=== PATIENT | female | born 1955 | race Caucasian/White ===

== ENCOUNTER → 2017-08-15 | Outpatient (CLI) | payer BC, OTHER ==
[~2017-08-15] MED LIST: ABILIF5PT PO; ADAL40PE4 SQ; BUPR-472 PO; BUPR-474 PO; CALC-18 PO; ESC10 PO; ESCI20TA38 PO; GABA-503 PO; GABA-547 PO; LOPE-101 PO; LOR5/325 PO; MULT-885 PO; PANT40TA65 PO; PRED20TA6 PO; SIMV-49 PO; WARF5TAB23 PO
--- NOTE | 2017-08-15 14:19 | RADIOLOGY IMAGING REPORT ---
FACILITY: [facility] PATIENT NAME: Belen Small : 1955 MR: [id number] V: [id number] EXAM DATE: ORDERING PHYSICIAN: ALEJANDRO DIAZ TECHNOLOGIST: Location: [facility] - [place] Patient: Belen Small : 1955 Visit/Account:[id number] Date of Sevice: 08/15/2017 Transvaginal pelvic ultrasound INDICATION: Post menopausal bleeding. Right. One week ago. COMPARISON: There is a report from a CT examination June 2013 FINDINGS: Uterus measures 9.5 x 4.7 x 6.9 cm. Within the anterior aspect lower uterine segment, there is a mixed echogenic, mostly hypoechoic circ ular lesion with some posterior shadowing which measures 2.4 x 1.5 x 2.0 cm indicative of intramural fibroid. Noted just caudal to this there is a 1.2 x 1.1 x 1 point centimeter lesion with similar anmol acteristics indicative of a second intramural fibroid. Nabothian cysts are noted within the cervix. The endometrium is thickened measuring 1.3 cm. Color overlay demonstrates no hypervascularity. No dis crete lesion. There is no free fluid in the cul-de-sac. Urinary bladder is empty. Pelvic vessels appear unremarkable on this examination. The ovaries are not visualized on this examination. IMPRESSION: 1. The endometrium is thickened for a postmenopausal patient measuring 1.3 cm. No discrete lesion is identified. No hypervascularity. This could be on benign or malignant etiology. [employer] LENS TECHNICIAN consultation i s recommended 2. Findings indicative of 2 intramural fibroids anterior lower uterine segment. Report Dictated By: Derrick Brown MD at 08/15/2017 2:11 PM Report E-Signed By: Derrick Brown MD at 08/15/2017 2:14 PM WSN:[id number]
== END ==
LOC: US 04:50
PROVIDERS: ATTEND Nurse Practitioner Family
DX: D25.1 Intramural leiomyoma of uterus (principal)
CPT/HCPCS: 76830

== ENCOUNTER → 2017-08-22 | Outpatient (CLI) | payer BC, OTHER | LOC: LAB 13:39 | PROVIDERS: ATTEND Obstetrics & Gynecology | DX: Z02.9 Encounter for administrative examinations, unspecified (principal) | CPT/HCPCS: 88305 ==

== ENCOUNTER → 2017-10-16 | Outpatient (CLI) | payer BC, OTHER ==
[~2017-10-16] MED LIST changes: +FOLI-68 PO; +GABA-549 PO; +LOPE2CAP15 PO; +ROSU5TAB8 PO; +VALA500T63 PO
--- NOTE | 2017-10-16 11:02 | EKG ---
FACILITY: [facility] PATIENT NAME: HUBER MAE : [id number] MR: [id number] V: [id number] EXAM DATE: ORDERING PHYSICIAN: WILLI LARKIN TECHNOLOGIST: MANNY Test Reason : PRE OP Blood Pressure : / mmHG Vent. Rate : 059 BPM Atrial Rate : 059 BPM P-R Int : 170 ms QRS Dur : 148 ms QT Int : 472 ms P-R-T Axes : 048 -64 069 degrees QTc Int : 467 ms Sinus bradycardia Left axis deviation Left bundle branch block Abnormal ECG When compared with ECG of 11-MAR-2017 17:11, No significant change was found Confirmed by SENA DORAN ([id number]) on 10/16/2017 12:49:14 PM Referred By: CHAYA Confirmed By:SENA DORAN
== END ==
LOC: RESP 10:40
PROVIDERS: ATTEND Obstetrics & Gynecology
DX: Z01.810 Encounter for preprocedural cardiovascular examination (principal); R00.1 Bradycardia, unspecified; Q21.0 Ventricular septal defect; R94.31 Abnormal electrocardiogram [ECG] [EKG]; I44.7 Left bundle-branch block, unspecified
CPT/HCPCS: 93005

== ENCOUNTER 2017-10-23 03:14 | Day surgery (SDC) | payer BC, OTHER ==
[2017-10-23] VITALS (9 sets, daily range): BP systolic 103–137; BP diastolic 63–84
[~2017-10-23] VITALS: Ht 170.2 cm; Wt 106.6 kg
[2017-10-23 06:14] LABS: PLATELET COUNT, AUTOMATED 192 K/uL (150-450)
[2017-10-23] MEDS ORDERED: LIDOCAINE/SOD BICARB 8.4% SYR ID ONE (06:30)
[2017-10-23] MEDS ORDERED: NORMOSOL R SOLN(*) 1000 ML BAG 1,000 ML IV PRN (06:30)
[2017-10-23] MEDS ORDERED: MIDAZOLAM 2 MG/2 ML VIAL IVP PRN (06:30)
[2017-10-23] MEDS ORDERED: fentaNYL CITR 100 MCG/2 ML AMP ONE (07:09)
[2017-10-23] MEDS ORDERED: ONDANSETRON 4 MG/2 ML VIAL ONE (07:09)
[2017-10-23] MEDS ORDERED: PROPOFOL EMUL(*) 10MG/ML 20 ML 20 ML ONE (07:09)
[2017-10-23] MEDS ORDERED: DEXAMETHASONE SOD PHOS 10MG/ML ONE (07:09)
[2017-10-23] MEDS ORDERED: KETAMINE HCL 500 MG/10 ML VIAL ONE (07:17)
--- NOTE | 2017-10-23 07:34 | History & Physical ---
History of Present Illness Chief Complaint Postmenopausal bleeding History of Present Illness 62-year-old presents with postmenopausal bleeding. She went through menopause 9 years ago. She was never on hormone replacement therapy until spring 2016. At that time, she did [place] with Cristine Gomez. She stopped in 12/2016 because of an episode of heavy bleeding. That episode lasted at least 2 weeks and was extremely heavy. At the time, she did not get evaluated and was told to stop her progesterone. This is what prompted her to stop the HRT. She did not have any other bleeding until 08/11/17. On that day she started having moderate flow bright red bleeding. It lasted for approximately 1 week. She has not had pain with this. She reports starting [employer] and 03/2017 and has lost 25 pounds on this program. History Obstetrical History: Hx 2 SVDs Past Medical History: PMH: Hyperlipidemia, Crohn's disease, GERD, Hx of anxiety/depression PSH: Tonsillectomy, cholecystectomy, knee arthroscopy Allergies: Coded Allergies: Penicillins (Verified Allergy, Unknown, 03/11/17) codeine (Verified Allergy, Unknown, 03/11/17) Social History: Wine about 5-6 glasses a week. No tobacco. Family History: FH: heart disease FATHER FH: prostate cancer Grandfather Med Rec Home Meds Reported Medications Valacyclovir Hcl (VALACYCLOVIR) 500 Mg Tablet, 500 MG PO QDAY 10/16/17 Gabapentin (GABAPENTIN) 300 Mg Capsule, 300 MG PO PRN Y for PAIN, CAPSULE 10/16/17 Rosuvastatin Calcium (CRESTOR) 5 Mg Tablet, 5 MG PO QHS 10/16/17 Loperamide HCl (Imodium A-D) 2 Mg Capsule, 1 CAP PO BID 10/16/17 Folic Acid (FOLIC ACID) 1 Mg Tablet, 1 MG PO QDAY, TAB 10/16/17 Pantoprazole Sodium (PANTOPRAZOLE SODIUM) 40 Mg Tablet.dr, 40 MG PO QDAY, TAB.SR 10/16/17 Aripiprazole (ABILIFY) 5 Mg Tablet, 5 MG PO QDAY, #10 TAB 10/16/17 Bupropion Hcl (WELLBUTRIN XL) 150 Mg Tab.er.24h, 300 MG PO DAILY, TAB TAKE 1 TABLET BY MOUTH EVERY DAY 07/12/13 Escitalopram Oxalate (LEXAPRO) 10 Mg Tab, 5 MG PO BID, TAB 07/12/13 Adalimumab (HUMIRA) 40 Mg/0.8 Ml Pen.ij.kit, 40 MG SQ QOWEEK TAKES EVERY OTHER WEEK ON Saturday11/30/12 Discontinued Reported Medications Multivitamin (DAILY VITAMIN) 1 Each Tablet, 1 EACH PO DAILY 11/30/12 Review of Systems Constitutional: No Fever Neurological: No Syncope Eyes: No Vision Change Cardiovascular: No Chest Pain Respiratory: No Shortness of Breath, No Cough Gastrointestinal: No Nausea, No Vomiting, No Diarrhea Genitourinary: No Dysuria Musculoskeletal: No Pain Psychiatric: No Depression, No Anxiety Exam General Exam Vital Signs Vital Signs Date Time Temp Pulse Resp B/P (MAP) Pulse Ox O2 Delivery O2 Flow Rate FiO2 10/23/17 06:07 97.4 67 16 137/82 (100) 89 Room Air General Apperance: Alert/Awake/No Acute Distress Neuro: No Gross deficits Eyes: Normal Extraocular Movement & Vison Cardiovascular: Regular Rate and Rhythm Respiratory: No Respiratory Distress, Clear to Auscultation Abdomen: Soft, Non-Tender, Non-Distended Musculoskeletal: No Weakness/Pain Extremities: No Cyanosis,Clubbing or Edema Integumentary: Skin Intact without Lesions or Rash Psychological: Alert & Oriented X3, Appropriate Mood & Affect Medical Decision Making Data Points Result Diagram: 10/23/17 0608 10/23/17 0608 Imaging Ultrasound/Imaging PATIENT NAME: Belen Small : 1955 MR: [id number] V: [id number] EXAM DATE: ORDERING PHYSICIAN: ALEJANDRO DIAZ TECHNOLOGIST: Location: [facility] - [place] Patient: Belen Small : 1955 Visit/Account:[id number] Date of Sevice: 08/15/2017 Transvaginal pelvic ultrasound INDICATION: Post menopausal bleeding. Right. One week ago. COMPARISON: There is a report from a CT examination June 2013 FINDINGS: Uterus measures 9.5 x 4.7 x 6.9 cm. Within the anterior aspect lower uterine segment, there is a mixed echogenic, mostly hypoechoic circular lesion with some posterior shadowing which measures 2.4 x 1.5 x 2.0 cm indicative of intramural fibroid. Noted just caudal to this there is a 1.2 x 1.1 x 1 point centimeter lesion with similar characteristics indicative of a second intramural fibroid. Nabothian cysts are noted within the cervix. The endometrium is thickened measuring 1.3 cm. Color overlay demonstrates no hypervascularity. No discrete lesion. There is no free fluid in the cul-de-sac. Urinary bladder is empty. Pelvic vessels appear unremarkable on this examination. The ovaries are not visualized on this examination. IMPRESSION: 1. The endometrium is thickened for a postmenopausal patient measuring 1.3 cm. No discrete lesion is identified. No hypervascularity. This could be on benign or malignant etiology. BIAS BINDING CUTTER consultation is recommended 2. Findings indicative of 2 intramural fibroids anterior lower uterine segment. Report Dictated By: Derrick Brown MD at 08/15/2017 2:11 PM Assessment and Plan Problems: (1) Postmenopausal bleeding Assessment & Plan: 62-year-old presents with postmenopausal bleeding. We discussed the risk of either hyperplasia or malignancy. Her endometrial stripe is 1.3 cm. An endometrial biopsy was performed. EMB was benign, but given the findings on ultrasound she elects for definitive diagnosis with hysteroscopic D& C. She is admitted for this procedure. WILLI LARKIN MD Oct 23, 2017 07:33
[2017-10-23] MEDS ORDERED: LR(*) 1000 ML BAG 1,000 ML IV ONE (07:54)
--- NOTE | 2017-10-23 07:54 | Post Operative Note ---
Operative Note - REVENUE STAMP CLERK Operative Day Date: Oct 23, 2017 Time: 07:52 Physicians Surgeon: Rio Anesthesia: Cleaning, General Diagnosis Pre-Op Diagnosis: Postmenopausal bleeding Thickened endometrial stripe Post-Op Diagnosis: Same Procedure Findings: Encometrial polyp Procedure(s): Hscope D&C Specimen Removed:(Maybe N/A): Endometrial polyp and curettings Fluids Fluids: IVF: 550cc UOP: 25cc Estimated Blood Loss: Minimal WILLI LARKIN MD Oct 23, 2017 07:53
[2017-10-23] MEDS ORDERED: LOR5/325 PO (07:55)
[2017-10-23] MEDS ORDERED: METOCLOPRAMIDE 10 MG/2 ML SDV IVP PRN (07:55)
[2017-10-23] MEDS ORDERED: IBUP800T37 PO (07:55)
--- NOTE | 2017-10-23 07:56 | Short(Outpt) Discharge Summary ---
Discharge Summary Reason for Hosp/Final Diag: (1) Postmenopausal bleeding Hospital Course & Plan: 62-year-old presents with postmenopausal bleeding. We discussed the risk of either hyperplasia or malignancy. Her endometrial stripe is 1.3 cm. An endometrial biopsy was performed. EMB was benign, but given the findings on ultrasound she elects for definitive diagnosis with hysteroscopic D& C. She is admitted for this procedure. Discharge Instructions Home Meds Active Scripts Hydrocodone Bit/Acetaminophen (HYDROCODON-ACETAMINOPHEN 5-325) 1 Each Tablet, 1 EACH PO Q4-6H Y for pain, #10 TAB 0 Refills Prov:WILLI PATE MD 10/23/17 Reported Medications Valacyclovir Hcl (VALACYCLOVIR) 500 Mg Tablet, 500 MG PO QDAY 10/16/17 Gabapentin (GABAPENTIN) 300 Mg Capsule, 300 MG PO PRN Y for PAIN, CAPSULE 10/16/17 Rosuvastatin Calcium (CRESTOR) 5 Mg Tablet, 5 MG PO QHS 10/16/17 Loperamide HCl (Imodium A-D) 2 Mg Capsule, 1 CAP PO BID 10/16/17 Folic Acid (FOLIC ACID) 1 Mg Tablet, 1 MG PO QDAY, TAB 10/16/17 Pantoprazole Sodium (PANTOPRAZOLE SODIUM) 40 Mg Tablet.dr, 40 MG PO QDAY, TAB.SR 10/16/17 Aripiprazole (ABILIFY) 5 Mg Tablet, 5 MG PO QDAY, #10 TAB 10/16/17 Bupropion Hcl (WELLBUTRIN XL) 150 Mg Tab.er.24h, 300 MG PO DAILY, TAB TAKE 1 TABLET BY MOUTH EVERY DAY 07/12/13 Escitalopram Oxalate (LEXAPRO) 10 Mg Tab, 5 MG PO BID, TAB 07/12/13 Adalimumab (HUMIRA) 40 Mg/0.8 Ml Pen.ij.kit, 40 MG SQ QOWEEK TAKES EVERY OTHER WEEK ON Saturday11/30/12 Discontinued Reported Medications Multivitamin (DAILY VITAMIN) 1 Each Tablet, 1 EACH PO DAILY 11/30/12 Follow up Referrals: FLYING INSTRUCTOR - In Two Weeks @ [facility] with Willi Pate Md Diet: Regular Activity: As Tolerated WILLI PATE MD Oct 23, 2017 07:56
--- NOTE | 2017-10-23 08:43 | EKG ---
FACILITY: [facility] [place] PATIENT NAME: HUBER MAE : [id number] MR: [id number] V: [id number] EXAM DATE: ORDERING PHYSICIAN: GEORGIE PINON TECHNOLOGIST: Test Reason : Blood Pressure : / mmHG Vent. Rate : 066 BPM Atrial Rate : 066 BPM P-R Int : 148 ms QRS Dur : 146 ms QT Int : 468 ms P-R-T Axes : 046 -62 046 degrees QTc Int : 490 ms Normal sinus rhythm Left axis deviation Left bundle branch block Abnormal ECG When compared with ECG of 16-OCT-2017 10:49, No significant change was found Confirmed by ARRON VARGAS ([id number]) on 10/23/2017 2:23:43 PM Referred By: Confirmed By:ARRON VARGAS
[2017-10-23] MEDS ORDERED: IBUPROFEN 800 MG TAB PO SCH (09:00)
--- NOTE | 2017-10-23 09:01 | OPERATIVE REPORT 1 ---
EVENT DATE: October 23, 2017 SURGEON: Gemini Pate MD ANESTHESIOLOGIST: Alvaro Cleaning MD ANESTHESIA: General, LMA PREOPERATIVE DIAGNOSIS 1. Postmenopausal bleeding. 2. Thickened endometrial stripe. POSTOPERATIVE DIAGNOSIS 1. Postmenopausal bleeding. 2. Endometrial polyp. FINDINGS Endometrial polyp. PROCEDURE PERFORMED Hysteroscopic dilation and curettage with hysteroscopic polypectomy. SPECIMENS Endometrial polyp and curettings. IV FLUIDS 550 cc. URINE OUTPUT 25 cc. ESTIMATED BLOOD LOSS Minimal INDICATIONS FOR PROCEDURE This patient is a 62-year-old 2, para 2, who presented with postmenopausal bleeding. During an evaluation, an ultrasound was performed which revealed a thickened endometrial stripe with evidence of a possible fibroid vs. polyp. An endometrial biopsy was performed which was benign. She was therefore consented for the above said procedure. Please see the history and physical for full details. DESCRIPTION OF PROCEDURE The patient was properly identified and taken to the operating room. She was placed under general anesthetic, placed in the dorsal lithotomy position, prepped and draped in the usual fashion for vaginal procedure. The bladder was drained of 25 cc of clear, yellow urine. A speculum was then placed to visualize the cervix which was noted to be multiparous and without lesion. The anterior lip of the cervix was grasped with an Allis clamp and placed on gentle traction. An os finder was utilized to navigate the cervix. Using Hegar dilators, the cervix was serially dilated to 6 mm without difficulty. The hysteroscope was then assembled and primed. The hysteroscope was introduced under direct visualization, and the intrauterine cavity was surveyed. There was an endometrial polyp on the mid anterior aspect of the uterus. The tubal ostia were normal bilaterally. The MyoSure light device was then assembled, and utilized to excise the polyp as well as obtain curettings throughout the entire cavity. Once this was accomplished, the hysteroscope was removed. The Allis clamp was removed as well as the speculum. The patient tolerated this procedure well and recovered in the Post Anesthesia Care Unit. All sponge counts were correct at the end of this procedure. [facility]
== END 2017-10-23 08:50 | disposition home or self-care (01) ==
LOC: OR 03:14
PROVIDERS: ATTEND Obstetrics & Gynecology
DX: N95.0 Postmenopausal bleeding (principal); N84.0 Polyp of corpus uteri; I44.7 Left bundle-branch block, unspecified; K21.9 Gastro-esophageal reflux disease without esophagitis; G47.33 Obstructive sleep apnea (adult) (pediatric); E78.5 Hyperlipidemia, unspecified; K50.90 Crohn's disease, unspecified, without complications
CPT/HCPCS: 36415; 58558; 85025; 88305; 93005; 94667; J1100; J2405; J2704; J3010; J3490; 82310; 82374; 82435; 82565; 82947; 84132; 84295; 84520